=== PATIENT | male | born 1960 | race African-American/Black ===

== ENCOUNTER 2021-08-28 14:36 | Emergency (ER) | payer OTHER ==
[2021-08-28] MEDS ORDERED: Bacitracin 1 PK ONE ×2 (15:53→15:55)
== END 2021-08-28 15:50 | disposition home or self-care (01) ==
LOC: CSHERS 14:36
DX: L02.811 Cutaneous abscess of head [any part, except face] (principal); I11.0 Hypertensive heart disease with heart failure; I50.9 Heart failure, unspecified; E78.5 Hyperlipidemia, unspecified; E78.00 Pure hypercholesterolemia, unspecified; I25.2 Old myocardial infarction; Z79.899 Other long term (current) drug therapy
CPT/HCPCS: 99282